=== PATIENT | male | born 1980 | race Caucasian/White ===

== ENCOUNTER 2020-05-21 12:29 | Outpatient (CLI) | payer OTHER ==
--- NOTE | 2020-05-21 14:00 | MRI Report ---
PROCEDURE: Cervical Spine W/O INDICATIONS: CERVICALGIA, DISORDERS OF BONE, SHOULDER TECHNIQUE: Noncontrast sagittal T1 spin echo and T2 fast spin echo, sagittal STIR, foraminal oblique sagittal T2 fast spin echo, and axial gradient echo or T2 fast spin echo through the cervical spine. COMPARISON: None. FINDINGS: Image quality: Excellent. Alignment and Curvature: There is loss of normal cervical lordosis. Bone Marrow: Marrow demonstrates normal overall signal. Spinal Cord: Visualized spinal cord has normal size and signal. No cerebellar tonsillar herniation. Paraspinous Soft Tissues: No paravertebral masses. Prevertebral soft tissues are normal in thicknes s. C2-C3: Mild disc desiccation. No significant canal, nor foraminal stenosis. C3-C4: Mild disc desiccation. Mild facet and uncovertebral hypertrophy. No canal stenosis. Mild alison ateral foraminal stenosis. C4-C5: Mild disc desiccation. Mild facet and uncovertebral hypertrophy bilaterally. Mild canal steno sis. Mild bilateral foraminal stenosis. C5-C6: Mild disc desiccation. Mild facet and uncovertebral hypertrophy bilaterally. Mild canal steno sis. Mild bilateral foraminal stenosis. C6-C7: Mild disc desiccation. Mild facet and uncovertebral hypertrophy bilaterally. Mild canal steno sis. Mild bilateral foraminal stenosis. C7-T1: Normal in appearance. IMPRESSION: 1. Multilevel degenerative disc and facet disease, as well as uncovertebral hypertrophy, causing mild canal and foraminal stenoses as described above. No neural impingement. Reviewed by: Esequiel Robins MD on 05/21/2020 1:58 PM PST Approved by: Esequiel Robins MD on 05/21/2020 1:58 PM PST Station ID: [id number]
--- NOTE | 2020-05-21 15:17 | MRI Report ---
PROCEDURE: Thoracic Spine W/O INDICATIONS: CERVICALGIA, DISORDERS OF BONE, SHOULDER TECHNIQUE: Noncontrast sagittal T1 spine echo and T2 fast spin echo, sagittal STIR, axial T1 and T2 fast spin ec ho through the thoracic spine. COMPARISON: MRI cervical spine 05/21/2020 FINDINGS: Image quality: Excellent. Alignment and Curvature: There is normal bony alignment. Bone Marrow: Marrow is of normal overall signal. No acute vertebral body compression fractures. Spinal Cord: Visualized spinal cord is normal in size and signal. Paraspinous Soft Tissues: No paravertebral masses. Miscellaneous: Minimal disc bulges are present at T5-6, T6-7, T7-8, T8-9. There is a posterior centr al protrusion at T5-6 as well as T7-8. Mild spinal stenosis is noted at T5-6, T6-7. There is mild alison ateral foraminal narrowing at T10-11. Multilevel disc desiccation is present throughout the thoracic spine. IMPRESSION: 1. Scattered mild disc bulges and protrusions. 2. Mild spinal stenosis C5-6 and T6-7. 3. Mild bilateral foraminal narrowing T10-11. Reviewed by: Jazmine Rushing MD on 05/21/2020 3:16 PM PST Approved by: Jazmine Rushing MD on 05/21/2020 3:16 PM PST Station ID: [id number]
--- NOTE | 2020-05-21 16:28 | MRI Report ---
PROCEDURE: Shoulder LT W/O INDICATIONS: CERVICALGIA, DISORDERS OF BONE, SHOULDER TECHNIQUE: Noncontrast oblique coronal T2 fast spin echo with fat saturation, oblique sagittal T1 spin echo and T2 fast spin echo with fat saturation, axial T1 spin echo and T2 fast spin echo with fat saturation t hrough the shoulder. COMPARISON: None. FINDINGS: Image quality: Excellent. Rotator cuff: There is mild T2 signal elevation within the supraspinatus and infraspinatus tendons a t the humeral insertion site extending to the muscular tendinous junction. There is a moderate grade bursal surface pinhole tear of the mid infraspinatus tendon at the humeral insertion site extending t o the muscular tendinous junction. The supraspinatus, infraspinatus, and subscapularis tendons otherw ise appear intact throughout. No rotator cuff muscle atrophy on sagittal images. Bones and bursae: No bone marrow contusions or fractures. Moderate acromioclavicular joint degenerat ion. The acromion demonstrates conventional anatomy, without an os acromiale. No pathologic subacro mial/subdeltoid bursal fluid is present. Capsule and soft tissues: There is a posterior inferior glenoid labral tear with a large para labral cyst at the inferior aspect of the glenoid, measuring 32 mm. The long head of the biceps tendon demon strates normal location and morphology. The rotator interval appears normal, without fibrosis. The coracohumeral ligament is normal in thickness. IMPRESSION: 1. Supraspinatus and infraspinatus tendinopathy. Small superimposed moderate grade pinhole tear of th e infraspinatus. No full-thickness rotator cuff tear. 2. Posterior inferior glenoid labral tear with large associated para labral cyst. 3. Acromioclavicular joint osteoarthritis. Reviewed by: Esequiel Robins MD on 05/21/2020 4:26 PM PST Approved by: Esequiel Robins MD on 05/21/2020 4:26 PM PST Station ID: [id number]
== END 2020-05-21 12:30 | disposition home or self-care (01) ==
LOC: DI 12:29
PROVIDERS: ATTEND Student in an Organized Health Care Education/Training Program
DX: M50.31 Other cervical disc degeneration, high cervical region (principal); M48.02 Spinal stenosis, cervical region; M47.812 Spondylosis without myelopathy or radiculopathy, cervical region; M51.24 Other intervertebral disc displacement, thoracic region; M48.04 Spinal stenosis, thoracic region; S46.022A Laceration of muscle(s) and tendon(s) of the rotator cuff of left shoulder, initial encounter; S46.822A Laceration of other muscles, fascia and tendons at shoulder and upper arm level, left arm, initial encounter; M19.012 Primary osteoarthritis, left shoulder; M71.312 Other bursal cyst, left shoulder